=== PATIENT | female | born 1990 | race Caucasian/White ===

== ENCOUNTER 2018-07-26 05:27 | Day surgery (SDC) | payer OTHER ==
[2018-07-26] MEDS ORDERED: LIDOCAINE 1% 2 ML INJ ID PRN (05:52)
[2018-07-26] MEDS ORDERED: LR 1,000 ML IV ONE (05:52)
--- NOTE | 2018-07-26 06:18 | PDGENHP ---
History and Physical History and Physical: Assessment and Plan: 1. Endometriosis Rajat symptoms and exam findings are highly suggestive of endometriosis. I reviewed her operative photos. There is suggestion of subtle endometriosis both the anterior cul-de-sac as well as pelvic sidewalls and uterosacral ligaments. We reviewed all conservative and surgical options. At the end of our discussion she is interested in surgical intervention. This will be a robotic excision of endometriosis. She has given me permission to remove her uterus if I deem it necessary however I find that this likely will not be required. The risks benefits and alternatives were presented and informed consent was obtained. 2. Pelvic pain Subjective: Patient ID: Vivienne Celis is a 27 y.o. female who presents to [facility] [place] for pelvic pain. ELVIA Palafox is a 27-year-old 0 woman from [place]. She has a long history of dysmenorrhea menorrhagia and dyspareunia. She underwent a laparoscopy in October 2016. The surgeon did not feel she had endometriosis. However her symptoms are highly suggestive of this. She has had her's operative photos reviewed by Dr. Whipple who was concerned about possible endometriosis. She has been on a monophasic control pill for 1 year. This has helped with the exacerbations of her pain with her menses but she still has daily pain. She was offered Lupron which she declined. Additionally she has alternating diarrhea and constipation gas nausea. She uses Toradol for both her pelvic pain and migraines. Uses gabapentin at night as needed for sleep. Her medical history is only significant for recent depression. PastMedicalHistory Past Medical History: Diagnosis Date ADD (attention deficit disorder) Anxiety Asthma Exercise induced; No inhaler currently Depression MALAGON (dyspnea on exertion) "A lttle" "Out of shape" Endometriosis Fatty liver Motion sickness Plane Pelvic pain in female Scoliosis Seasonal allergies PastSurgicalHistory Past Surgical History: Procedure Laterality Date laproscopy Exploratory for Endometriosis PELVIC LAPAROSCOPY 11/02/2016 [place] WISDOM TOOTH EXTRACTION 2013 CURRENT MEDICATIONS: Current Outpatient Medications Medication Sig dextroamphetamine-amphetamine (ADDERALL) 10 mg tablet Take 10 mg by mouth as needed. gabapentin (NEURONTIN) 300 mg capsule Take 600 mg by mouth nightly at bedtime. LORazepam (ATIVAN) 0.5 mg tablet Take 1 tablet by mouth daily as needed. MICROGESTIN FE 08/27, 28, 1 mg-20 mcg (21)/75 mg (7) per tablet Take 1 tablet by mouth daily. Patient takes this continuously QUEtiapine (SEROQUEL) 100 mg tablet Take 100 mg by mouth daily. sertraline (ZOLOFT) 50 mg tablet Take 1 tablet by mouth daily. No current facility-administered medications for this visit. ALLERGIES: Topical agent combination no.1 and [place] I have reviewed, verified and agree with the past medical, surgical, , family, social and ROS history as documented by the RN today. Objective: Vital Signs: Visit Vitals BP 98/58 Pulse 93 Temp 36.7 C (98.1 F) (Tympanic) Ht 1.765 m (5' 9.5") Wt 80.3 kg (177 lb) LMP 07/19/2018 (Exact Date) SpO2 99% BMI 25.76 kg/m Physical Exam Gen: This is an alert, well developed woman in no distress. Neuro: She moves all extremities. Psych: She is appropriate, oriented, with normal affect. Neck: No thyroid enlargement, adenopathy, or tenderness. Lungs: Clear to ascultation, no wheezes or rales. Heart: Regular rate and rhythm without obvious murmurs. Abdomen: Soft, non-tender, without guarding, rebound, or masses. Extremities: No edema or cyanosis. Pelvic: Normal external genitalia. Non-gaping introitus, vagina without discharge, adequately estrogenized, no significant prolapse. Cervix without lesions or discharge. Uterus normal sized, mobile, non-tender. Adnexa non- tender without enlargement. She is tender surrounding the cervix especially posteriorly. The posterior cul-de-sac is tender as well as the insertion of the uterosacral ligaments. No obvious pelvic masses are palpable. DATA: I have reviewed the pertinent medical records. TIME/COMMUNICATION: I personally spent a total of 60 minutes. Of that 40 minutes was counseling/ coordination of patient's care. See my note above for details. Mynor Bell MD Board Certified Female Pelvic Medicine and Reconstructive Surgery Director of Minimally Invasive Gynecologic Surgery, [facility] Surgeon in Minimally Invasive Gynecologic Surgery [facility] Surgeon in Robotic Surgery
[2018-07-26] MEDS ORDERED: ceFAZolin 2 GM/DEXTROSE 100 ML IV ONE (06:33)
[2018-07-26] MEDS ORDERED: PHENAZOPYRIDINE HCL 200 MG TAB PO ONE (06:33)
[2018-07-26] MEDS ORDERED: GABAPENTIN 300 MG CAP PO ONE (06:33)
[2018-07-26] MEDS ORDERED: ACETAMINOPHEN 500 MG TAB PO ONE (06:33)
[2018-07-26] MEDS ORDERED: fentaNYL 100 MCG/2 ML INJ ONE ×4 (07:03→10:02)
[2018-07-26] MEDS ORDERED: PROPOFOL 200 MG/20 ML VIAL ONE ×2 (07:04→08:07)
[2018-07-26] MEDS ORDERED: ROCURONIUM 100 MG/10 ML VIAL ONE (07:05)
[2018-07-26] MEDS ORDERED: LIDOCAINE 2% 5 ML SDV ONE (07:06)
[2018-07-26] MEDS ORDERED: ONDANSETRON 4 MG/2 ML VIAL ONE (07:06)
[2018-07-26] MEDS ORDERED: KETOROLAC 30 MG/1 ML SDV ONE (07:06)
[2018-07-26] MEDS ORDERED: SUGAMMADEX SODIUM 200 MG/2 ML VIAL IVP ONE (07:06)
[2018-07-26] MEDS ORDERED: SCOPOLAMINE HYDROBROMIDE 1 MG/3 DAYS PATCH TD ONE (07:06)
[2018-07-26] MEDS ORDERED: DEXAMETHASONE 4 MG/ML VIAL ONE (07:06)
[2018-07-26] MEDS ORDERED: MIDAZOLAM 2 MG/2 ML VIAL ONE (07:07)
--- NOTE | 2018-07-26 07:07 | PDHPUP ---
History & Physical Update H&P update statement: This history and physical update is based on an assessment of the patient which was completed after admission or registration (within 24 hours), but prior to the surgery/procedure. H&P update: H&P reviewed & patient examined, no change in patient's condition since H&P completed
[2018-07-26] MEDS ORDERED: MIDAZOLAM 2 MG/2 ML VIAL IVP ONE (07:08)
[2018-07-26] MEDS ORDERED: BUPIVACAINE/EPI 0.5% 30 ML SDV ONE (07:10)
[2018-07-26] MEDS ORDERED: SCOPOLAMINE HYDROBROMIDE 1 MG/3 DAYS PATCH TD SCH (07:15)
--- NOTE | 2018-07-26 07:16 | PDANEPAE ---
ANE History of Present Illness endometriosis ANE Past Medical History - Cardiovascular History Hx Hypertension: No Hx Arrhythmias: No Hx Chest Pain: No Hx Coronary Artery / Peripheral Vascular Disease: No Hx CHF / Valvular Disease: No Hx Palpitations: No - Pulmonary History Hx COPD: No Hx Asthma/Reactive Airway Disease: Yes Hx Recent Upper Respiratory Infection: Yes Hx Oxygen in Use at Home: No Hx Sleep Apnea: No Sleep Apnea Screening Result - Last Documented: Negative Pulmonary History Comment: EXERCISE INDUCED ASTHMA. BRONCHITIS 04/2018 - Neurologic History Hx Cerebrovascular Accident: No Hx Seizures: No Hx Dementia: No - Endocrine History Hx Diabetes: No Obesity: no - Renal History Hx Renal Disorders: No - Liver History Hx Hepatic Disorders: No - Neurological & Psychiatric Hx Hx Neurological and Psychiatric Disorders: Yes Neurological / Psychiatric History Comment: DEPRESSION. MIGRAINES WEEKLY - Cancer History Hx Cancer: No - Congenital Disorder History Hx Congenital Disorders: No - GI History Hx Gastrointestinal Disorders: Yes Gastrointestinal History Comment: HEARTBURN WAS FOR AWHILE USED. OTC NONE USE PAST MONTH - Other Health History Other Health History: ENDOMETROSIS. INSOMNIA - Chronic Pain History Chronic Pain: Yes (OVARY AREA) - Surgical History Prior Surgeries: DX LAP 10/2017 ANE Review of Systems Review of systems is: negative Review of Systems: - Exercise capacity METS (RN): 4 METS ANE Patient History - Allergies Allergies/Adverse Reactions: TOPICAL CORTICOL STEROIDS Allergy (Uncoded 07/25/18 10:08) Anaphylaxis - Home Medications Home medications: home medication list seen and reviewed Home Medications: Gabapentin HS 07/25/18 [Last Taken 07/25/18 20:00] Herbals/Supplements -Info Only DAILY 07/25/18 [Last Taken 07/25/18 20:00] KETOROLAC TROMETHAMINE PRN 07/25/18 [Last Taken 07/23/18] LORAZEPAM PRN 07/25/18 [Last Taken 07/19/18] Microgestin Fe 1-20 Tablet HS 07/25/18 [Last Taken 07/24/18] Seroquel HS 07/25/18 [Last Taken 07/24/18] Zoloft 50mg (*) DAILY 07/25/18 [Last Taken 07/25/18 13:00] - NPO status NPO Since - Liquids (Date): 07/26/18 NPO Since - Liquids (Time): 04:30 NPO Since - Solids (Date): 07/25/18 NPO Since - Solids (Time): 20:00 - Anes Hx Anes Hx: no prior problems - Smoking Hx Smoking Status: Never smoked ANE Labs/Vital Signs - Vital Signs Blood Pressure: 129/76 Heart Rate: 65 Respiratory Rate: 12 O2 Sat (%): 100 Height: 176.53 cm Weight: 77.111 kg ANE Physical Exam - Airway Neck exam: FROM Mallampati Score: Class 1 Mouth exam: normal dental/mouth exam - Pulmonary Pulmonary: no respiratory distress - Cardiovascular Cardiovascular: regular rate and rhythym - ASA Status ASA Status: II ANE Anesthesia Plan Anesthesia Plan: general endotracheal anesthesia
[2018-07-26] MEDS ORDERED: LR 500 ML IV PRN (07:57)
[2018-07-26] MEDS ORDERED: oxyCODONE IR 5 MG TAB PO PRN (07:57)
[2018-07-26] MEDS ORDERED: PROMETHAZINE HCL 25 MG/ML INJ IVP PRN (07:57)
[2018-07-26] MEDS ORDERED: ALBUTEROL 3 ML DEYVIAL IH PRN (07:57)
[2018-07-26] MEDS ORDERED: NALOXONE HCL 0.4 MG/ML INJ IVP PRN (07:57)
[2018-07-26] MEDS ORDERED: HYDROmorphONE/DILAUDID 2 MG/ML INJ IVP PRN (07:57)
[2018-07-26] MEDS ORDERED: ACETAMINOPHEN 500 MG TAB PO PRN (07:57)
[2018-07-26] MEDS ORDERED: METOCLOPRAMIDE 10 MG/2 ML VIAL IVP PRN (07:57)
[2018-07-26] MEDS ORDERED: DIAZEPAM 5 MG/ML 1 ML SYR IVP PRN (07:57)
[2018-07-26] MEDS ORDERED: HYDROCODONE/APAP 5/325 TAB PO PRN (07:57)
[2018-07-26] MEDS ORDERED: ONDANSETRON 4 MG/2 ML VIAL IVP PRN (07:57)
--- NOTE | 2018-07-26 07:57 | POSTANESTH ---
Post Anesthetic Evaluation Cardiovascular Status: Normal, Stable Respiratory Status: Normal, Stable Level of Consciousness/Mental Status: Can Participate in Eval, Mildly Sleepy, Arousable Pain Control: Adequate, Prn Tx Ordered Nausea/Vomiting Control: Adequate, Prn Tx Ordered Complications Possibly Related to Anesthesia: None Noted
--- NOTE | 2018-07-26 08:46 | POSTOPPROG ---
Post Op Note Date of Operation: 07/26/18 Surgeon: Mynor Bell Application Systems Engineer: Adia Culp Anesthesia: GET(General Endotracheal) Pre-op Diagnosis: Endometriosis, pelvic pain Post-op Diagnosis: Same Procedure: Robotic excision of endo, bilat ureterolysis and ovarian pexy Findings: Endo Inf/Abcess present in the surg proc area at time of surgery?: No EBL: Minimal Complications: None
[2018-07-26] MEDS: fentaNYL 100 MCG/2 ML INJ IVP PRN ×3 (08:51→10:05)
[2018-07-26] MEDS ORDERED: HYDROCODONE/APAP 5/325 TAB ONE ×2 (09:29→10:02)
--- NOTE | 2018-07-26 10:02 | GOP ---
DATE OF OPERATION: 07/26/2018 SURGEON: Mynor Bell MD SALESPERSON AUTOMOBILES: Adia Culp CFA. ANESTHESIA: General. PREOPERATIVE DIAGNOSIS: 1. Dysmenorrhea. 2. Endometriosis. 3. Mid cycle pelvic pain. POSTOPERATIVE DIAGNOSIS: 1. Dysmenorrhea. 2. Endometriosis. 3. Mid cycle pelvic pain. PROCEDURE PERFORMED: 1. Robotic excision of endometriosis in posterior cul-de-sac and bilateral pelvic side aleman. 2. Bilateral ureterolysis. 3. Bilateral ovariopexy. FINDINGS: SPECIMENS: Pelvic peritoneum with endometriosis. ESTIMATED BLOOD LOSS: Scant. DESCRIPTION OF PROCEDURE: The patient was taken to the operating room. She was identified. General anesthesia was administered and found to be adequate. She was placed in the lithotomy position and prepared and draped in normal sterile fashion. A Purdy catheter was placed in her bladder. A Hulka tenaculum was placed in the uterus for manipulation. A 1 cm infraumbilical incision was made with a scalpel. The Veress needle with the CO2 gas flowing w as advanced into the peritoneal cavity. The abdomen was then insufflated with carbon dioxide gas. T he 12 mm trocar followed by the laparoscope were then inserted. The upper abdomen was unremarkable. There was no evidence of endometriosis on either diaphragm, liver, or upper abdominal bowel. Two la teral ports placed in the right, 1 on the left under direct visualization. She then was placed in Tr endelenburg position and the da Ramy robot docked on the left side. The instruments were then broug ht into the abdominal cavity under direct visualization. Using near focus laparoscopy multiple lesions of endometriosis were identified in the posterior cul-d e-sac and both pelvic sidewalls including overlying both ureters. Only 2 small lesions were seen in the anterior cul-de-sac. A bilateral ovariopexy was performed by attaching it over to the ipsilatera l round ligaments near the internal inguinal rings using 3-0 Vicryl Rapide suture. The posterior cul -de-sac peritoneum from the distal rectum up to the cervix and laterally to both uterosacral ligament s was then completely excised. A bilateral ureterolysis was required given the endometriosis overlyi ng both ureters. The peritoneum at the pelvic brims were incised. The ureters were gently dissected free and lateralized off the overlying peritoneum and endometriosis from the pelvic brim down to the uterine arteries. Once this was accomplished, the entire pelvic sidewall peritoneum was completely excised. All specimens were sent to Pathology for permanent section. The robot was then undocked. The fascia was closed with 0 Vicryl, skin with 4-0 Monocryl. The patient was then extubated and take n to the PACU awake in stable condition. COMPLICATIONS: None. DISPOSITION: Patient stable to PACU. /[id number]/MODL
[2018-07-26] MEDS ORDERED: HYDROmorphONE/DILAUDID 2 MG/ML INJ ONE (11:11)
[2018-07-26 12:00] VITALS: BP 121/76
[2018-07-27] MEDS ORDERED: PATCH REMOVAL 1 EA PATCH TD ONE (07:08)
== END 2018-07-26 11:47 | disposition home or self-care (01) ==
LOC: FSGY 05:27
PROVIDERS: ATTEND Obstetrics & Gynecology
PROC: 0UBF4ZZ Excision of Cul-de-sac, Percutaneous Endoscopic Approach (ICD-10-PCS; principal; 2018-07-26 07:15)
PROC: 0DBW4ZX Excision of Peritoneum, Percutaneous Endoscopic Approach, Diagnostic (ICD-10-PCS; principal; 2018-07-26 07:15)
PROC: 8E0W4CZ Robotic Assisted Procedure of Trunk Region, Percutaneous Endoscopic Approach (ICD-10-PCS; principal; 2018-07-26 07:15)
DX: N80.3 Endometriosis of pelvic peritoneum (principal); N94.6 Dysmenorrhea, unspecified; R10.2 Pelvic and perineal pain; F98.8 Other specified behavioral and emotional disorders with onset usually occurring in childhood and adolescence; F41.8 Other specified anxiety disorders; J45.909 Unspecified asthma, uncomplicated
CPT/HCPCS: J0690; J1100; J1170; J1885; J2250; J2405; J2704; J3010